=== PATIENT | male | born 1970 | race Caucasian/White ===

== ENCOUNTER 2018-09-10 05:03 | Emergency (ER) | payer BC ==
[2018-09-10] MEDS: KETOROLAC 60 MG INJ IM (05:53)
== END 2018-09-10 06:06 | disposition home or self-care (01) ==
LOC: FTE 05:03
DX: K64.4 Residual hemorrhoidal skin tags (principal); F17.210 Nicotine dependence, cigarettes, uncomplicated
CPT/HCPCS: 96372; 99284-25